=== PATIENT | female | born 1980 | race Two or more races ===

== ENCOUNTER 2018-06-06 17:36 | Observation (INO) | payer MEDICAID ==
[~2018-06-06] VITALS: Ht 154.9 cm; Wt 62.3 kg
[2018-06-06 18:19] LABS: Basophils # (auto) 0 uL; Basophils % (auto) 0.2 % (0.0-2.0); Eosinophils # (auto) 0 uL; Hemoglobin 12.3 g/dL (12.2-16.2); Lymphocytes # (auto) 0.7 uL; Lymphocytes % (auto) 6.4 % (10.0-50.0); Mean Corpuscular Hemoglobin 30.9 pg (28.0-32.0); Mean Corpuscular Hgb Conc. 35.1 g/dL (32.0-36.0); Mean Corpuscular Volume 87.9 fL (80.0-100.0); Monocytes # (auto) 0.6 uL; Neutrophils # (auto) 9.4 uL; Neutrophils % (auto) 87.4 % (37.0-80.0); Platelet Count (auto) 176 10^3/uL (140-450); Red Blood Cells 3.98 10^6/uL (4.0-5.20); White Blood Cell 10.8 10^3/uL (4.4-10.8)
[2018-06-06 18:29] LABS: Potassium 3.1 mmol/L (3.5-5.1)
[2018-06-06 18:35] LABS: Albumin 2.9 g/dL (3.4-5.0); Calcium 8.3 mg/dL (8.5-10.1)
[2018-06-06 18:40] LABS: BUN/Creatinine Ratio 8.2; Bilirubin, Total 0.6 mg/dL (0.2-1.0)
[2018-06-06 21:31] VITALS: BP 130/70
[2018-06-06 22:24] LABS: Urine Bacteria NONE SEEN /hpf (None Seen); Urine Blood TRACE /uL (Negative); Urine Specific Gravity 1.004 (1.001-1.035); Urine WBC 1 /hpf (0 - 5)
[2018-06-06] MEDS ORDERED: ONDANSETRON HCL 4 MG/2 ML VIAL IV ONE (22:30)
[2018-06-06] MEDS ORDERED: SODIUM CHLORIDE 0.9% 1,000 ML IV ONE (22:30)
== END 2018-06-06 21:16 | disposition home or self-care (01) | DRG 566 ==
LOC: ER 17:42 → LDRP 18:22
PROVIDERS: ADMIT Specialist; ATTEND Specialist
DX: O21.2 Late vomiting of pregnancy (principal); O26.892 Other specified pregnancy related conditions, second trimester; E87.6 Hypokalemia; M79.10 Myalgia, unspecified site; R50.9 Fever, unspecified; R42 Dizziness and giddiness; Z3A.25 25 weeks gestation of pregnancy
CPT/HCPCS: 36415; 59025; 80053; 81001; 81002; 85025; 96374; 99284; G0378; J2405; 96365; 96366

== ENCOUNTER 2018-06-09 15:24 | Emergency (ER) | payer MEDICAID ==
[~2018-06-09] VITALS: Ht 154.9 cm; Wt 62.1 kg
[2018-06-09 15:42] VITALS: BP 114/67
[2018-06-09] MEDS ORDERED: cefTRIAXone SOD 1,000 MG VL IM ONE (16:15)
[2018-06-09] MEDS ORDERED: ACETAMINOPHEN 325 MG TAB PO ONE (16:15)
== END 2018-06-09 17:15 | disposition home or self-care (01) ==
LOC: ER 15:28
DX: O26.892 Other specified pregnancy related conditions, second trimester (principal); H66.93 Otitis media, unspecified, bilateral; J03.90 Acute tonsillitis, unspecified; K21.9 Gastro-esophageal reflux disease without esophagitis; Z76.0 Encounter for issue of repeat prescription; Z3A.26 26 weeks gestation of pregnancy
CPT/HCPCS: 96372; 99283; J0696